=== PATIENT | male | born 1960 | race Caucasian/White ===

== ENCOUNTER 2019-11-16 13:40 | Emergency (ER) | payer MEDICARE, MEDICAID ==
[~2019-11-16] VITALS: Ht 188 cm; Wt 68.2 kg
[2019-11-16] MEDS ORDERED: ALBUTEROL SULFATE 2.5 MG/0.5 ML INH NEB SOLN As Ordered ONE (14:23)
[2019-11-16] MEDS ORDERED: ALBUTEROL SULFATE 2.5 MG/0.5 ML INH NEB SOLN INH ONE (14:30)
[2019-11-16] MEDS ORDERED: IPRATROPIUM 0.5MG/ALBUTEROL 2.5MG INH SOL UD 3ML (DUONEB) NEB ONE (14:30)
[2019-11-16] MEDS: COMBIVENT RESPIMAT 100-20MCG INHALER 4GM INH SCH ×3 (14:36→15:10)
[2019-11-16 15:28] LABS: MEAN CORPUSCULAR HEMOGLOBIN 27.3 pg (27.0-33.0); MEAN CORPUSCULAR HGB CONC 30.8 g/dl (32.0-36.5); MEAN CORPUSCULAR VOLUME 88.8 fl (80.0-96.0); RED BLOOD COUNT 1.61 10^6/uL (4.30-6.10)
[2019-11-16 15:37] LABS: INR 2.21
[2019-11-16] MEDS ORDERED: LIDOCAINE 2% 5ML JELLY UROJET TOP ONE (15:45)
[2019-11-16] MEDS ORDERED: OFLO3OPSO OU (15:47)
--- NOTE | 2019-11-16 15:49 | REPVR ---
PROCEDURE INFORMATION: Exam: XR Chest, 1 View Exam date and time: 11/16/2019 2:06 PM Age: 59 years old Clinical indication: Cough and shortness of breath; Additional info: Dyspnea/cough TECHNIQUE: Imaging protocol: XR of the chest Views: 1 view. COMPARISON: No relevant prior studies available. FINDINGS: Lungs: Consolidation in the lung bases. Pleural space: Moderate right and small left pleural effusions. Heart/Mediastinum: Mild prominence of the cardiac silhouette. Bones/joints: Degenerative change of the spine. IMPRESSION: 1. Prominence of the cardiac silhouette. 2. Consolidation in the lung bases and bilateral pleural effusions. Electronically signed by: Ashleigh Negro On 11/16/2019 15:49:40 PM
[2019-11-16 15:54] LABS: HEMATOCRIT 14.3 % (42.0-52.0); HEMOGLOBIN 4.4 g/dl (13.5-17.5)
[2019-11-16 15:55] LABS: PLATELET COUNT, AUTOMATED 42 10^3/uL (150-450)
[2019-11-16 15:56] LABS: WHITE BLOOD COUNT 583.7 10^3/uL (4.0-10.0)
[2019-11-16 16:10] LABS: BASOPHILS 1 % (0-1); EOSINOPHILS 1 % (0-3); LYMPHOCYTES 1 % (16-44); METAMYELOCYTES 3 % (0-0); MYELOCYTES 4 % (0-0); NEUTROPHILS 2 % (28-66); PROMYELOCYTES 5 % (0-0)
[2019-11-16 16:11] LABS: ANISOCYTOSIS 2+; BLAST CELLS 80 % (0-0); PLATELET ESTIMATE DECREASED (NORMAL)
[2019-11-16 16:12] LABS: HYPOCHROMASIA 3+; POIKILOCYTOSIS 1+; SMUDGE CELLS 3+
[2019-11-16 16:25] LABS: ALBUMIN 2.8 GM/DL (3.2-5.2); BILIRUBIN,DIRECT 0.5 MG/DL (0.0-0.2); BILIRUBIN,TOTAL 0.9 MG/DL (0.2-1.0); THYROID STIMULATING HORMONE 20.2 uIU/ML (0.358-3.740); THYROXINE (T4) 4.9 UG/DL (4.5-12.0); TOTAL PROTEIN 6.1 GM/DL (6.4-8.2)
--- NOTE | 2019-11-16 16:54 | REPVR ---
PROCEDURE INFORMATION: Exam: CT Head Without Contrast Exam date and time: 11/16/2019 2:06 PM Age: 59 years old Clinical indication: Injury or trauma; Fall; Blunt trauma (contusions or hematomas) TECHNIQUE: Imaging protocol: Computed tomography of the head without contrast. Radiation optimization: All CT scans at this facility use at least one of these dose optimization techniques: automated exposure control; mA and/or kV adjustment per patient size (includes targeted exams where dose is matched to clinical indication); or iterative reconstruction. COMPARISON: No relevant prior studies available. FINDINGS: Brain: Unremarkable. No acute intracranial hemorrhage. No midline shift. Cerebral ventricles: No ventriculomegaly. Bones/joints: No acute fracture. Paranasal sinuses: Visualized sinuses are unremarkable. No fluid levels. Mastoid air cells: Visualized mastoid air cells are well aerated. Soft tissues: Unremarkable. IMPRESSION: No acute intracranial abnormality. Electronically signed by: Ashleigh Negro On 11/16/2019 16:54:19 PM
[2019-11-16 18:17] VITALS: BP 131/73
--- NOTE | 2019-11-16 19:51 | ECGEPIP ---
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
== END 2019-11-16 18:21 | disposition short-term general hospital (02) ==
LOC: M ED 13:40
DX: C91.00 Acute lymphoblastic leukemia not having achieved remission (principal); I50.9 Heart failure, unspecified; D64.9 Anemia, unspecified; Z79.899 Other long term (current) drug therapy